=== PATIENT | female | born 1945 | race Caucasian/White ===

== ENCOUNTER → 2016-08-21 | Outpatient (CLI) | payer MEDICARE, OTHER ==
[~2016-08-21] MED LIST: ASPIR 8181 MG PO; ATIVAN 1MG TABLE1 MG PO; CALCIUM600 MG PO; CARBIDOPA-LEVO1 EAC1 PO; FLOVENT DISKUS50 MCG INH; KEPPRA250 MG PO; PRAVASTATIN SOD20 MG PO; PRILOSEC OTC20 MG PO; PROVENTIL HFA 61 INH INH; TOPROL XL25 MG PO; VENTOLIN HFA8 GM INH; VITAMIN B-1000 MCG/M IM; VITAMIN B-12100 MCG PO; VITAMIN D1000 UNI1 PO
== END ==
LOC: HEART 5 13:06
DX: R06.02 Shortness of breath (principal)
CPT/HCPCS: 94060; 94729